=== PATIENT | male | born 1970 | race African-American/Black ===

== ENCOUNTER 2016-03-11 18:45 | Emergency (ER) | payer OTHER ==
[~2016-03-11] VITALS: Ht 175.3 cm; Wt 78.0 kg
[2016-03-11 19:18] VITALS: Ht 175.3 cm; Wt 78.0 kg
[2016-03-11] MEDS ORDERED: ONDANSETRON (ODT) 4 MG TAB ODT STA (19:43)
[2016-03-11] MEDS ORDERED: ALBU2.5V3 NEB (19:58)
[2016-03-11] MEDS ORDERED: HYDROCODONE/APAP (10/325) TAB PO ONE (20:00)
[2016-03-11] MEDS ORDERED: PRED10TA PO (20:07)
[2016-03-11] MEDS ORDERED: MOME13HF INHALATION (20:09)
[2016-03-11] MEDS ORDERED: HYDR-902 PO (20:11)
--- NOTE | 2016-03-11 20:16 | RADRPT ---
PROCEDURE: XR Forearm. CLINICAL INDICATION: Fall with deformity and pain at the distal left forearm. TECHNIQUE: AP and lateral views of the left forearm were obtained. COMPARISON: No prior studies are available for comparison. FINDINGS: There is normal mineralization and alignment. Comminuted fractures of the distal radial metaphysis, with intra-articular components The soft tissues are unremarkable. IMPRESSION: Comminuted fractures of the distal radial metaphysis with intra-articular components. RPTAT: [facility] Physician Randell Date Time Electronically viewed and signed by Physician Randell on 03/11/2016 20:15 RS/
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
[2016-03-11] MEDS ORDERED: HYDROmorphONE 2 MG/ML SYG IM STA (21:05)
[2016-03-11] MEDS ORDERED: NICARDipine HCL 30 MG CAPSULE PO ONE (22:00)
[2016-03-11 23:03] VITALS: BP 156/118; PULSE 88; RESP 19
== END 2016-03-11 23:03 | disposition home or self-care (01) ==
LOC: E/R 18:45
DX: S52.532A Colles' fracture of left radius, initial encounter for closed fracture (principal); J45.909 Unspecified asthma, uncomplicated; W17.89XA Other fall from one level to another, initial encounter; Y92.9 Unspecified place or not applicable
CPT/HCPCS: 29125; 73090; 96372; J1170; Z7502; Z7610

== ENCOUNTER 2016-10-19 13:19 | Emergency (ER) | payer SELFPAY ==
[~2016-10-19] VITALS: Ht 175.3 cm; Wt 76.4 kg
[~2016-10-19 13:19] MED LIST: ALBU2.5V3 NEB; HYDR-902 PO; MOME13HF INHALATION; PRED10TA PO
[2016-10-19 13:29] VITALS: Ht 175.3 cm; Wt 76.4 kg
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
[2016-10-19] MEDS ORDERED: HYDROCODONE/APAP (5/325) TAB PO ONE (17:00)
--- NOTE | 2016-10-19 17:23 | RADRPT ---
PROCEDURE: Lumbar spine series CLINICAL INDICATION: Pain status post trauma TECHNIQUE: AP, lateral, and cone lateral views COMPARISON: None available FINDINGS: No acute fractures or traumatic subluxations are present. Mild osteophyte formation is present at t he L5-S1 level with severe disk space height loss and degenerative endplate and disk changes present . The paravertebral soft tissues and no abnormal calcifications are noted. The mineralization is n ormal. IMPRESSION: 1. No acute fractures or traumatic subluxations. 2. Severe degenerative endplate and disk disease at L5-S1. RPTAT: HDC .Geovanna Mehta MD, Date Time Electronically viewed and signed by .Geovanna Mehta MD, on 10/19/2016 17:22 .C/
[2016-10-19] MEDS ORDERED: HYDR-906 PO (17:28)
[2016-10-19] MEDS ORDERED: KETOROLAC 30 MG INJ IM STA (18:35)
[2016-10-19] MEDS ORDERED: KETOROLAC 30 MG INJ ONE (18:37)
[2016-10-19 18:48] VITALS: BP 175/108; PULSE 47; RESP 18; TEMP 97.4
== END 2016-10-19 18:53 | disposition home or self-care (01) ==
LOC: FTE 13:19
DX: S39.91XA Unspecified injury of abdomen, initial encounter (principal); J45.909 Unspecified asthma, uncomplicated; V03.10XA Pedestrian on foot injured in collision with car, pick-up truck or van in traffic accident, initial encounter
CPT/HCPCS: 72100; 96372; 99284; J1885